=== PATIENT | female | born 1955 ===

== ENCOUNTER 2018-03-31 17:06 | Inpatient (IN) | payer SELFPAY ==
[~2018-03-31 17:06] MED LIST: ISOVUE-370 76%-LOCM 1 ML ONE
[2018-03-31 18:55] VITALS: BMI 20.9
--- NOTE | 2018-03-31 19:27 | PDOC.FPRHP ---
- History of Present Illness Chief Complaint: headache History of Present Illness: 62 yo F with pmh HTN (noncompliance) transfer from outside ED for further evaluation of stroke workup. Pt presented to outside ED with complaints of headache. Onset this afternoon, position behind the R eye with no radiation. Pain is of sharp character, rated 8/10 on presentation. No transforming factors or related symptoms. no n/v, no cp, no sob. Pt had similar episode of pain in October that resolved spontaneously. Pt hx of htn dx with noncompliance to medications. reports sbp in 130s at home. ED Course: Administered metoprolol in outside ED, non con CT head - "cannot rule out L MCA infarction" - History PMHx: HTN (non compliant) PSHx: none FHx: stroke, CAD Social: current smoker (17 pack years), EtOH occasionally social, denies drugs - Review of Systems General: denies: fever/chills, fatigue Eyes: reports: eye pain. denies: vision changes ENT: denies: nasal congestion, rhinorrhea Respiratory: denies: cough, congestion, shortness of breath Cardiovascular: denies: chest pain, palpitation Gastrointestinal: denies: nausea, vomiting Skin: denies: rashes, lesions, jaundice Musculoskeletal: denies: pain, tenderness Neurological: denies: numbness, syncope, seizure, weakness Psychological: denies: anxiety - Vital signs BP: [214/105] HR: [83] RR: [18] Tmax: [98.9] Pox: [98]% on [ra] Wt: [58kg] - Physical Exam Constitutional: NAD, awake, alert and oriented HEENT: normocephalic and atraumatic, EOMI, normal nasal mucosa, MMM Neck: trachea midline Chest: no-tender to palpation Heart: RRR, normal S1/S2, no murmurs/rubs/gallops Lungs: CTAB, no respiratory distress, good air movement Abdomen: soft, non-tender, bowel sounds present Musculoskeletal: normal structure, normal tone -Neurological: A and O x3 CN 2-12 intact other than Pupil on right reactive from 5-6mm, 4-3mm on left equal 5/5 strength in upper and lower extremeties normal sensation normal DTRs bilaterally in brachial, patellar, biceps, and achilles Skin: no rash/lesions, good turgor Heme/Lymphatic: no unusual bruising or bleeding, no purpura Psychiatric: normal mood and affect, good judgment and insight FMR H&P: A/P - Problem List (1) Stroke determined by clinical assessment Current Visit: Yes Status: Acute Code(s): I63.9 - CEREBRAL INFARCTION, UNSPECIFIED (2) Hypertension Current Visit: Yes Status: Acute Code(s): I10 - ESSENTIAL (PRIMARY) HYPERTENSION - Plan Acute CVA A- ischemic CVA vs. HTN urgency. Other than pupil reactivity and dilation, pt has no focal neurological deficits P- CTA head and neck - consult stroke team - MRI in AM - Echocardiogram - FLP, A1C - routine neuro checks. - Will give full dose ASA and high dose statin pending CTA - will avoid acutely lowering BP, but will add PRNs for BP > 220/120. Hypertension - will begin PO antihypertensive to reduce BP. - if CTA reveals hemmhoragic stroke will emergently treat BP FMR H&P: Upper Level - Pertinent history Sofia Link is a 62 year old female who was direct admitted from an outside ER due to concern for CVA. She had a chief complaint of right eye irritation/pain that began early this morning rating it 8/10, with no associated symptoms. The pain finally resolved with Lopressor that she was given in the ED. She denies any signs of focal weakness, numbness, parasthesias , dysphagia, facial droop, and dysarthria. At the outside ER she was found to have an initial blood pressure of 229/116. She was given Lopressor. Non contrast CT of the head showed possible evolving left MCA infarct. Negative UA and Negative BMP. - Pertinent findings Physical Exam: General: alert and oriented x 3; in no apparent distress HEENT: EOMI; right pupil slightly more dilated than left, however both pupils reactive. Heart: regular rate and rhythm, no murmurs, rubs, or gallops. Lungs: clear to auscultation bilaterally. Neuro: CN II-XII intact grossly; no focal motor or sensory deficits. No dysdiadokinesis. Normal reflexes. - Plan Date/Time: 03/31/181926 ICielo, have evaluated this patient and agree with findings/plan as outlined by sports team marketing intern resident. Pertinent changes/additions are listed here. Acute CVA - likely ischemic based on Non-contrast CT report obtained from outside ER. - will consult stroke team - MRI to assess for degree of ischemia - Echocardiogram - FLP, A1C - routine neuro checks. - Will give full dose ASA - will avoid acutely lowering BP to allow for permissive hypertension, but will add PRNs for BP > 220/120. Hypertension - will begin PO antihypertensive tomorrow for long-term BP reduction. Attending Addendum - Attending Addendum Date/Time: 04/01/18 0159 I personally evaluated the patient and discussed the management with Dr. Arboleda I agree with the History, Examination, Assessment and Plan documented above with any addition or exceptions noted below.
[2018-03-31] MEDS ORDERED: Acetaminophen 325 MG TAB PO PRN (19:31)
[2018-03-31] MEDS ORDERED: Atorvastatin Calcium 40 MG TAB PO SCH (21:00)
--- NOTE | 2018-03-31 21:05 | PDOC.EVN ---
Attending Addendum - Attending Addendum Date/Time: 03/31/182035 I personally evaluated the patient and discussed the management with Dr. Arboleda Briefly this is a 62 yo female with known hypertension who traveled from [place] to visit her Daughter here in [place]. Patient upon arrival she c/o right eye tearing and pain. Pain was evaluated in free standing ER with notable elevated BP 229/116 and was given IV 5 mg lopressor PE: with unequal pupil size otherwise Neuro exam non focal. Patient with non contrast CT of head at outside facility with questionable findings "couldnt rule out Left MCA ischemia" Transfering Physician was concerned with ICB on reviewing CT Scan. PMHX Meds OTC advil several times weekly for arthritis and has been off lisinopril several years and self monitoring BP at home which she states runs about 140/ 90s Allergies NKDA Habits 36 pack year history of smoking FMHX Mother with Colon CA Mother with HTN Surgery none 3 at term ROS as above elevated BP DJD she denies speech changes, N/V,numbness ,tingling , visual changes, photophobia, weakness of extremities, Headache or history seizure. She denies Chest pain or shortness of breath. PE BP 214/105 P 83 T afebrile RR 12 NAD HEENT dentures noted CN 2-12 intact pupils unequal right 5 mm left 3mm both brisk reaction to light EOMI right globe sl tender conjunctiva non erythematous Neck supple non tender Lung CTA Heart NSR Abdomen Soft Neuro nonfocal other than unequal pupils EKG NSR U/A pending A. Hypertensive Urgency r/o CVA initial equivocal CT rec Work up, cerebral CTA ,MRI brain pending CTA finding allow permissive BP if any indication ischemic CVA otherwise slowly lower BP no more 15 % over next 24 hours echocardiogram , serial neuro checks and observation for further consideration. The care plan discussed with family. For further specifics lab see Dr Arboleda HX and PE
[2018-03-31 21:10] LABS: Hemoglobin A1c 5.6 % (4.0-6.0)
[2018-03-31 21:13] LABS: Cardiac Risk 5.1 (Less than 4.5)
--- NOTE | 2018-03-31 22:15 | CT ---
CT ANGIO OF HEAD AND NECK PERFORMED WITH AND WITHOUT CONTRAST ENHANCEMENT WITH 3D RECONSTRUCTIONS: 03/31/18 HISTORY: Patient states right eye began to hurt. Evaluation for stroke. The ventricular and cisternal system is within normal limits for age. There is an extra-axial appeari ng mass with peripheral calcification in the right cerebellum. This is in midline. It causes some sca lloping to the inner table of the skull at this level and most likely represents meningioma. [place] to be an incidental finding. No hemorrhage or mass effect. There is some decreased attenuation to the pe riventricular white matter slightly asymmetric in the left frontal white matter of questionable signi ficant. Clinical correlation as to any left MCA territory findings. The thyroid gland is normal. Vocal cord region is unremarkable. Parapharyngeal spaces are clear. The parotid and submandibular gland regions also appear unremarkable. Angiographic portion of this examination yielded a good study. There are codominant vertebral arterie s. There is origin of the left common carotid artery from the aortic arch. There is atherosclerotic plaq ue at the origin of the internal carotid artery but less than 50% narrowing by NASCET criteria. The e xternal carotid artery is unremarkable. On the right side, the right common carotid artery is normal in appearance. The internal and external carotid arteries show no significant narrowing. CT ANGIO OF HEAD PERFORMED WITH CONTRAST: Anterior and middle cerebral arteries and their branches appear unremarkable. The basilar artery and posterior cerebral arteries showed no findings. IMPRESSION: 1. No evidence of significant stenosis of either internal carotid artery. 2. On the noncontrast study there is some slight asymmetry to the decreased attenuation of the left frontal white matter as compared to the right This is probably related to slight obliquity of t he patient. Clinical correlation as to any left MCA symptoms. 3. Extra-axial mass in the right occipital region along the right side of the cerebellum most li marilee a meningioma measuring in the 2 cm range. POS: [facility]
[2018-03-31] MEDS ORDERED: Tetrahydrozoline 0.05% OPTH 15 ML BOT R EYE PRN (22:49)
--- NOTE | 2018-03-31 23:30 | RAD ---
PORTABLE CHEST: 03/31/18 HISTORY: Smoking history. Heart size is witin normal limits. There are atherosclerotic changes of the aorta. The lungs are carrol r of infiltrative process. There is linear density seen overlying the left chest almost with the woodrow earance of a pneumothorax; however, I do see lung markings distal to this and this may be somewhat ex trinsic to the patient. I have no reason for there to be a pneumothorax by history. IMPRESSION: No active intrathoracic disease. POS: [facility]
--- NOTE | 2018-04-01 06:14 | PDOC.FM ---
- Subjective Subjective: NAEO. Patient denies any eye pain or tearing as well as any dysphagia, numbness , or weakness. Denies any headache or vision changes as well. - Objective MAR Reviewed: Yes Vital Signs & Weight: Vital Signs (12 hours) Temp Pulse Resp BP BP Pulse Ox 04/01/18 04:00 98.1 F 77 16 171/96 H 96 03/31/18 23:41 98.1 F 77 16 141/72 H 94 L 03/31/18 19:53 98.2 F 76 14 193/94 H 95 03/31/18 18:52 98.9 F 83 18 214/105 H 98 Weight Weight 58.967 kg <Lacie Zacarias - Last Filed: 04/01/18 07:58> - Objective Vital Signs & Weight: Vital Signs (12 hours) Temp Pulse Resp BP BP Pulse Ox 04/01/18 08:25 96 04/01/18 08:00 98.2 F 77 16 135/75 94 L 04/01/18 04:00 98.1 F 77 16 171/96 H 96 03/31/18 23:41 98.1 F 77 16 141/72 H 94 L Weight Weight 58.967 kg I&O: 03/31/18 04/01/18 04/02/18 06:59 06:59 06:59 Intake Total 200 Balance 200 <Bhaskar Stokes - Last Filed: 04/01/18 10:32> Phys Exam - Physical Examination Constitutional: NAD HEENT: moist MMs, oral pharynx no lesions Neck: supple, full ROM Respiratory: no wheezing, no rales, no rhonchi, clear to auscultation bilateral Cardiovascular: RRR, no significant murmur, no rub Gastrointestinal: soft, non-tender, no distention, positive bowel sounds Musculoskeletal: no edema, pulses present Neurological: non-focal, normal sensation, moves all 4 limbs Psychiatric: normal affect, A&O x 3 Skin: no rash, normal turgor, cap refill <2 seconds <Lacie Zacarias - Last Filed: 04/01/18 07:58> Dx/Plan (1) Stroke determined by clinical assessment Code(s): I63.9 - CEREBRAL INFARCTION, UNSPECIFIED Status: Acute (2) Hypertension Code(s): I10 - ESSENTIAL (PRIMARY) HYPERTENSION Status: Chronic - Plan Plan: 62YOF w/ PMH significant for HTN who presented to an outside ED for evaluation of eye tearing and pain who was determined to have suffered from a L MCA infarct by clinical assessment. Acute CVA - Patient likely suffered from an ischemic CVA vs. HTN urgency. - CTA significant for 2cm meningioma in R occipital region w/o any mass effect and decreased attenuation in R frontal lobe area that could explain any L MCA findings per radiology. MRI pending for this AM to r/o CVA. - Echocardiogram pending as well to r/o any cardiac defects that could have contributed to possible CVA. - FL significant for total cholesterol of 224 w/ LDL of 165. High potency statin therapy w/ 80mg lipitor started. Will also start on 81mg QD. - Stroke team consulted & will continue routine neuro checks. - Will avoid acutely lowering BP. SBPs ranging from 193-141 w/o any antihypertensives since admission. Will continue to monitor and bring down slowly PRN. Hypertension - Will begin PO antihypertensive to reduce BP slowly PRN as patient likely suffered from an acute ischemic CVA as CTA not significant for any hemorrhage. <Lacie Zacarias - Last Filed: 04/01/18 07:58> (1) Stroke determined by clinical assessment Code(s): I63.9 - CEREBRAL INFARCTION, UNSPECIFIED Status: Acute (2) Hypertension Code(s): I10 - ESSENTIAL (PRIMARY) HYPERTENSION Status: Chronic <Bhaskar Stokes - Last Filed: 04/01/18 10:32> Attending Addendum - Attending Addendum Date/Time: 04/01/18 1028 I personally evaluated the patient and discussed the management with Dr. Medellin I agree with the History, Examination, Assessment and Plan documented above with any addition or exceptions noted below. MRI not currently available neuro exam wnl BP better without RX no symptoms present for middle cerebral artery distribution. Patient aware of incidental meningioma finding. Patient to start lisinopril,statin and ASA and await Neurology rec. Patient should be stable for dismissal if she continues stable for further outpatient evaluation. <Bhaskar Stokes - Last Filed: 04/01/18 10:32>
[2018-04-01] MEDS ORDERED: hydrALAZINE 20 MG/ML VIAL SLOW IVP PRN (07:54)
[2018-04-01] MEDS ORDERED: Lorazepam 2 MG/ML VIAL SLOW IVP PRN (08:00)
[2018-04-01] MEDS ORDERED: Aspirin 325 mg Enteric Coated Tablet PO SCH (09:00)
[2018-04-01 11:49] VITALS: TEMP 98.9
[2018-04-01 12:59] VITALS: BP 130/75
--- NOTE | 2018-04-01 19:25 | CON ---
DATE OF CONSULTATION: 04/01/2018 REASON FOR CONSULTATION: Vision change, unequal pupil, and abnormal MRI brain. HISTORY OF PRESENT ILLNESS: Ms. Link is a pleasant 62-year-old female, who has been co nsidered for evaluation of unequal pupil, blurry vision, and abnormal MRI of the brain. History is o btained from the patient, who is a very good historian. She reports that she is from [place]. She is visiting her family here in town. She was driving for about [address] here, she notice d a sudden onset of pain behind her right eye. She also noticed blurry vision and watery eyes. This lasted for a few minutes and thus she decided to present to the [facility]. She repo rts that her symptoms slowly started improving and resolved after a few hours. She did not have any headache, chest pain, palpitation, tinnitus, double vision, droopy eyelid, facial droop, numbness, ti ngling or weakness in upper or lower extremities, dysarthria or dysphagia. Her gait and balance were normal. On arrival here, she was noted by admitting physician to have unequal pupil, for which I am being asked to further evaluate. She did have a CT scan of the head done, which showed small hyperde nse lesion in the right occipital region suggestive of meningioma. She currently denies any associat ed symptoms. PAST MEDICAL HISTORY: Significant for hypertension. PAST SURGICAL HISTORY: None. FAMILY HISTORY: Significant for stroke and coronary artery disease. SOCIAL HISTORY: She is a current smoker. She reports of occasional alcohol use. She denies illicit drug use. CURRENT MEDICATIONS: Please review MAR. ALLERGIES: No known drug allergies. REVIEW OF SYSTEMS: As mentioned in the HPI, otherwise negative. PHYSICAL EXAMINATION: VITAL SIGNS: Blood pressure of 166/85, pulse of 72, temperature of 98.9, respirations 16, O2 sats ar e 92% on room air. GENERAL: Well-developed, well-nourished female in no apparent distress. RESPIRATORY: Clear to auscultation bilaterally. CARDIOVASCULAR: Regular rate and rhythm. NEUROLOGICAL: Mental status: The patient is awake, alert, oriented x3. Speech and language: Fluen t speech. Cranial nerves: Right pupil 4 mm and reactive. Left pupil is 3 mm and reactive. Visual issa are intact. External muscles are intact. No nystagmus is noted. No ptosis noted. Face is s ymmetric with normal facial strength. Tongue and uvula are midline. Shoulder shrug is normal bilate rally. Motor exam showed normal tone and bulk with a 5/5 strength in both upper and lower extremitie s. Sensory: Sensation is intact and symmetric. Deep tendon reflexes, 2+ reflexes in both upper and lower extremities. Babinski: Plantar responses flexion bilaterally. Coordination intact to finger -nose-finger and finger tapping bilaterally. Gait and Romberg are normal. LABORATORY DATA: Reviewed, which included sed rate and lipid profile, which is significant for total cholesterol 224, LDL of 165, HDL of 44, triglycerides of 77, otherwise unremarkable. Hemoglobin A1c was 5.6 and sed rate was less than 1. IMAGING STUDIES: CT angio of the head was reviewed, which showed no acute evidence of intracranial v ascular abnormality. There was extraaxial mass in the right occipital region suggestive of a meningi jesus, measuring 2 cm range. IMPRESSION: 1. Extraaxial mass in the right occipital region is likely meningioma. 2. Unequal pupil. ASSESSMENT AND PLAN: Ms. Link is a pleasant 62-year-old female, who is traveling from [place] to [place] for family visit, had noted right eye pain. Subsequently, she had CT scan of the head done, which showed small meningioma on the right occipital region. Her pupils are unequa l, but they are reactive bilaterally. There was no ptosis or extraocular muscles defect noted, this may be a physiological. At this time, I have discussed with the patient that she is okay to be disch arged to home, but she needs to be seen by neurologist once she reaches [place] immediately and she ne eds to have MRI brain with and without contrast done. She will also probably benefit from having see n family partner to further evaluate for this unequal pupil. No further neurological workup needed from my standpoint, the patient is going to be discharged home.
--- NOTE | 2018-04-02 22:54 | DIS ---
DATE OF ADMISSION: 03/31/2018 DATE OF DISCHARGE: 04/01/2018 RESIDENT: Lacie Zacarias MD ADMITTING ATTENDING: Bhaskar Stokes MD DISCHARGE ATTENDING: Bhaskar Stokes MD CONSULTATIONS: Neurology, Larisa Bond MD PROCEDURES: 1. Chest x-ray, significant for no active intrathoracic process. 2. CT [place] angio with and without contrast significant for no significant stenosis of either internal carotid artery, decreased attenuation in the left frontal white matter compared to the right on the noncontrast study , and an extraaxial mass in the right occipital region along the right side of the cerebellum, most likely a meningioma measuring in the 2 cm range. 3. Echocardiogram, described as a technically difficult study with poor endocardial definition with an estimated EF of 55-60% and E/A flow reversal noted suggestive of diastolic dysfunction. PRIMARY DIAGNOSIS: 1. Suspected acute ischemic cerebrovascular accident 2. Hypertensive urgency. SECONDARY DIAGNOSES: 1. Hypertension. 2. History of tobacco abuse. DISCHARGE MEDICATIONS: 1. Aspirin 81 mg p.o. daily. 2. Atorvastatin 80 mg p.o. at bedtime. 3. Lisinopril 10 mg p.o. daily. DISCONTINUED MEDICATIONS: None. HISTORY OF PRESENT ILLNESS AND HOSPITAL COURSE: The patient is a 62-year-old female with a past medical history significant for hypertension and longstanding tobacco use, who presented to an outside Emergency Department with a chief complaint of right eye tearing and pain. Upon presentation to the [facility] ER, she was noted to be hypertensive with a blood pressure measuring 229/116 and was given 5 mg IV Lopressor. In addition, on physical exam at the outside facility, the patient was noted to have anisicoria with intact light reflexes. Otherwise her neurologic exam was completely benign with no focal deficits. The patient therefore underwent a noncontrast CT of the head that was significant for questionable findings stating they "could not rule out a left MCA ischemia," and it was requested that the patient be transferred to [facility] as the transferring physician was concerned for a possible intracranial bleed upon review of the patient's CT scan. The patient was therefore transferred to [facility] Emergency Department for further workup. On arrival to the [facility] Emergency Department, the patient was noted to have a blood pressure of 214/105. A repeat CTA of the head and neck with and without contrast was performed, which was significant for an area of decreased attenuation of the left frontal white matter compared to the right as well as an extra-axial mass in the right occipital region most likely representing a 2-cm meningioma. The patient was noted to have the same PE findings that were noted at the outside ED as her right pupil was measuring approximately 5-6 mm and the left 3-4 mm. Thus, due to the fact that the patient suffered from a suspected ischemic cerebrovascular accident & her BP remained significantly elevated, the patient was admitted for observation overnight and the Stroke Team was consulted. The patient remained stable overnight and her blood pressure auto-regulated down to the 140s systolic without needing to receive any p.r.n. blood pressure medications. In addition, on the morning of discharge, a fasting lipid panel was obtained as well as a hemoglobin A1c, which were significant for an elevated total cholesterol of 224 with an LDL of 165. Her hemoglobin A1c was WNLs. Lastly, an echocardiogram was obtained, which was read to be a poor study. However, her estimated ejection fraction was reported at 55-60% with some E/A flow reversal noted suggestive of diastolic dysfunction. The patient remained stable for the duration of the morning with plans to be sent to an outside facility to obtain an MRI to rule out an ischemic cerebrovascular accident as the MRI in [place] was out of order. However, the patient had traveled from out of town to visit her daughter and declined being transferred in order to obtain the MRI with the hopes of being able to be discharged earlier in the day. It was therefore decided that the patient could be discharged once she was evaluated and cleared by neurology with strict follow-up instructions once she returned home to [place]. The patient expressed understanding and later that morning, she was evaluated by Dr. Larisa Bond with Neurology who concluded that the patient was stable despite having some residual anisicoria on physical exam. He stated there was no ptosis or extraocular muscle deficits noted and felt that it was okay for the patient to be discharged home. However, as we expressed to the patient, Dr. Bond recommended that she be seen by a neurologist immediately upon returning to [place] in order to have an MRI of the brain with and without contrast.. He also suggested that she may benefit from seeing an clinical documentation specialist to further evaluate her pupillary defect. Therefore, due to the fact that Neurology cleared the patient, her eye pain and tearing resolved, and her blood pressure stabilized, the patient was cleared for discharge home in stable condition. DISPOSITION: Stable. DISCHARGE INSTRUCTIONS: 1. Location: Home. 2. Diet: Heart healthy diet. 3. Activity: As tolerated. No restrictions. 4. Followup: The patient was instructed to follow up immediately with her primary care provider and/or neurologist upon returning home to [place] in order to schedule an MRI with and without contrast as an outpatient. SUZE
--- NOTE | 2018-04-03 15:28 | CT ---
CT ANGIO OF HEAD AND NECK PERFORMED WITH AND WITHOUT CONTRAST ENHANCEMENT WITH 3D RECONSTRUCTIONS: 03/31/18 HISTORY: Patient states right eye began to hurt. Evaluation for stroke. The ventricular and cisternal system is within normal limits for age. There is an extra-axial appeari ng mass with peripheral calcification in the right cerebellum. This is in midline. It causes some sca lloping to the inner table of the skull at this level and most likely represents meningioma. [place] to be an incidental finding. No hemorrhage or mass effect. There is some decreased attenuation to the pe riventricular white matter slightly asymmetric in the left frontal white matter of questionable signi ficant. Clinical correlation as to any left MCA territory findings. The thyroid gland is normal. Vocal cord region is unremarkable. Parapharyngeal spaces are clear. The parotid and submandibular gland regions also appear unremarkable. Angiographic portion of this examination yielded a good study. There are codominant vertebral arterie s. There is origin of the left common carotid artery from the aortic arch. There is atherosclerotic plaq ue at the origin of the internal carotid artery but less than 50% narrowing by NASCET criteria. The e xternal carotid artery is unremarkable. On the right side, the right common carotid artery is normal in appearance. The internal and external carotid arteries show no significant narrowing. CT ANGIO OF HEAD PERFORMED WITH CONTRAST: Anterior and middle cerebral arteries and their branches appear unremarkable. The basilar artery and posterior cerebral arteries showed no findings. IMPRESSION: 1. No evidence of significant stenosis of either internal carotid artery. 2. On the noncontrast study there is some slight asymmetry to the decreased attenuation of the left frontal white matter as compared to the right This is probably related to slight obliquity of t he patient. Clinical correlation as to any left MCA symptoms. 3.Extra-axial mass in the right occipital region along the right side of the cerebellum most likely a meningioma measuring in the 2 cm range.
== END 2018-04-01 15:15 | disposition home or self-care (01) | DRG 66 ==
LOC: 2SE 18:36
PROVIDERS: ADMIT Family Medicine; ATTEND Family Medicine
DX: I63.8 Other cerebral infarction (principal); D32.0 Benign neoplasm of cerebral meninges; I10 Essential (primary) hypertension; I16.0 Hypertensive urgency; F17.210 Nicotine dependence, cigarettes, uncomplicated
CPT/HCPCS: 36415; 70496; 70498; 71045; 80061; 82565; 83036; 85652; 93306; G8978-GP-CH; G8979-GP-CH; G8980-GP-CH; G8987-GO-CH; G8988-GO-CH; G8989-GO-CH